=== PATIENT | male | born 1965 | race Caucasian/White ===

== ENCOUNTER 2023-06-26 11:07 | Day surgery (SDC) | payer OTHER, SELFPAY ==
[2023-06-26] VITALS (13 sets, daily range): BP systolic 108–154; BP diastolic 70–97
[2023-06-26] MEDS: VANCOCIN 300 MG IV (14:30)
[2023-06-26] MEDS: VANCOCIN 300 ML IV (14:30)
[2023-06-26 14:51] LABS: Glucose - Point of Care 103 mg/dl (70-99)
--- NOTE | 2023-06-26 18:18 | ITS.CL.PACE ---
Addendum entered and electronically signed by Himanshu Sharp DO 07/03/23 11:29:
Addendum:
Indications
Symptomatic Bradycardia off AVN blocking agents
CHB with syncope
Syncope with bradycardia
Original Note:
[employer] Front [employer]er - Pacemaker Implant
Pacemaker Implant
Procedure Report:
Primary Utility Accounts Director: Dr. Arturo Melissa
Procedure Date: 06/26/2023
Name of procedure:
1. Placement of a dual-chamber pacemaker, right sided
2. Subclavian venography
3. ILR explant
History:
1. 57-year-old male with past medical history significant for CORDELL, hypertension, hyperlipidemia, CAD status post PCI 2018, 2021, 05/27/2023, diabetes mellitus type 2, obesity, recurrent syncope, sleep apnea, symptomatic bradycardia with sinus arrest
8 to 9 seconds with concurrent syncope. Patient is left-handed and is an avid rifle shooter via the left shoulder confirmed at time of procedure today therefore choice was made by patient and physician for right-sided device implantation.
2. Please refer to H&P for complete history.
Indication:
Symptomatic bradycardia off AV parish blocking agents
Recurrent syncope with bradycardia
Methods:
After informed consent was obtained, the patient was brought to the EP laboratory in a postabsorptive, nonsedated state. Peripheral IV access was established. Prophylactic antibiotics were administered prior to incision. Continuous ECG, blood
pressure, and pulse oximetry were initiated. Cardioversion patch electrodes were placed on the patient's chest and back. A grounding patch was applied to the skin. Sedation was administered by anesthesia.
In order to define the extrathoracic portion of the subclavian vein and exclude significant venous obstruction or anomalous anatomy, subclavian venography was performed prior to the procedure. Using the patient's right peripheral IV, contrast was
injected and images were recorded. The right subclavian vein and SVC were found to be widely patent.
The right chest was prepared and draped in a sterile fashion. A time-out was performed. Local anesthesia was injected in the subcutaneous tissue in the infraclavicular area. An incision was made medial to the deltopectoral groove. The
subcutaneous tissue was dissected the level of the prepectoral fascia. A subcutaneous pocket was created. Under fluoroscopic guidance and with the assistance of the images from the venogram, 2 separate venipunctures were made using micropuncture
and modified Seldinger technique. These were performed in the extrathoracic portion of the subclavian vein. Guidewires were passed and two peel-away sheaths were placed, and used to advance leads into the circulation.
Using fluoroscopic guidance, the leads were positioned. The RV lead was advanced to the RV/outflow tract. Ventricular ectopy was recorded. Images were taken in CHOW and SAMOAN views to ensure appropriate lead placement. The lead tip was subsequently
positioned on the apical septum. Adequate sensing and pacing parameters were found, and no diaphragmatic stimulation was seen with high-output pacing.
Next, the right atrial lead was positioned in the right atrial appendage. Adequate sensing and pacing parameters were found, and no diaphragmatic stimulation was seen with high-output pacing. Both sheaths were split, and the leads were secured to
the fascia with Ethibond ties.
The pocket was flushed with antibiotic solution and hemostasis was assured. Surgiflo was applied. The generator was connected to the leads and placed inside the pocket with antibiotic envelope. The wound was closed with 3 running layers of
absorbable suture, and steri-strips were applied. Dressing applied over steri-strips in standard fashion.
Next, local anesthesia was injected in the subcutaneous tissue overlying the ILR. An incision was made into the chronic scar. The subcutaneous tissue was dissected the level of the chronic capsule. The capsule was opened and the ILR was removed.
The pocket was flushed with antibiotic solution and hemostasis was assured. Absorbable suture was used to close the wound. Manual pressure was applied until hemostasis resulted. Topical skin adhesive was applied to the skin.
Following the procedure, the patient was taken to the recovery area in stable condition. A chest x-ray was obtained in the holding area/patient room.
Lead parameters and device programming:
- RA Lead ([employer], [id number], #[id number]): Sensing 3.5 mV, Pacing threshold 0.4 V at 0.4 ms, Imp 520 Ohm
- RV Lead (Medtronic, [id number], #[id number]): Sensing 5.8 mV, Pacing threshold 0.4 V at 0.4 ms, Imp 520 Ohm
- Device: Medtronic, [id number] pacemaker (#[id number]), programmed AAIR to DDDR, mode switch on, lower rate 60, upper tracking rate 130 ppm
- Explanted device: [place] model: Biomonitor, Serial#[id number]
Conclusions:
1. Successful placement of a dual-chamber pacemaker
2. Subclavian venography
3. Successful removal of ILR
Recommendations:
1. Admit
2. Chest x-ray in recovery area/patient room.
3. IV antibiotics while the patient is admitted.
4. OK to resume home medications as indicated
5. Pressure dressing to be removed in AM, aquacell to remain until wound check
6. Follow-up will be arranged in the office in 7-10 days post-discharge
7. Given ischemic heart disease, OK to resume beta-adelaide
Himanshu Sharp, DO
Clinical Cardiac Manager Strategy
cc: Dr. Arturo Melissa
[2023-06-26 19:01] LABS: Glucose - Point of Care 95 mg/dl (70-99)
--- NOTE | 2023-06-26 19:25 | PTCARENOTE ---
Received patient at 1850 after removal of loop recorder and PPM left upper chest. Dressings dry and intact, immobilizer in place RUE. Monitoring VS, at the bedside, call good within reach.
[2023-06-26] MEDS: NORVASC 5 MG PO (20:21)
[2023-06-26] MEDS: LIPITOR 80 MG PO (20:21)
[2023-06-26] MEDS: ZESTRIL 20 MG PO (20:21)
[2023-06-26] MEDS: NEURONTIN 100 MG PO (20:21)
[2023-06-26] MEDS: PLAVIX 75 MG PO (20:21)
[2023-06-26] MEDS: ASPIR LOW (ENTERIC COATED) 81 MG PO (20:26)
[2023-06-26 21:31] LABS: Glucose - Point of Care 134 mg/dl (70-99)
[2023-06-26] MEDS: TYLENOL 650 MG PO (21:36)
--- NOTE | 2023-06-27 01:38 | PTCARENOTE ---
Pt. remains in NSR so far this shift. Right chest wall pressure dressing with Aquacel CDI with no drainage present, strong right radial pulse present with intact sensation, immobilizer on. CXR completed. Verified with Dr. Sharp pt. is not to
receive any further antibiotics since coming to the floor. Medicated with Tylenol for pacer site discomfort and sore throat from intubation with good results obtained. Pt. currently sleeping.
[2023-06-27 03:19] VITALS: BP 121/80
[2023-06-27] MEDS: TYLENOL 650 MG PO (03:45)
[2023-06-27 04:07] LABS: Hematocrit 42.3 % (39.0-52.0); Mean Corp Hgb Conc. 35.5 g/dL (33.0-37.0); Mean Corpuscular Hgb 30.5 pg (27.0-31.0); Mean Corpuscular Volume 86.2 fL (80.0-94.0); Platelet Count 176 10^3/uL (130-400); Red Blood Cell Count 4.91 10^6/uL (4.70-6.10); Red Cell Dist. Width 12.3 % (11.5-14.5); White Blood Cell Count 9.5 10^3/uL (4.8-10.8)
[2023-06-27 04:35] LABS: Blood Urea Nitrogen 13 mg/dl (9-20); Calcium 9.2 mg/dl (8.4-10.2); Carbon Dioxide 25 mmol/L (22-30); Chloride 102 mmol/L (98-107); Estimated Creatinine Clearance > 125 ml/min; Glucose 112 mg/dl (70-99); Sodium 137 mmol/L (135-145); eGFR > 60.00
[2023-06-27 06:38] VITALS: BP 143/92
[2023-06-27 06:43] LABS: Glucose - Point of Care 119 mg/dl (70-99)
--- NOTE | 2023-06-27 07:31 | W.PN.CARDCBS ---
Today's Communication / Plan
-
Stable for discharge
Impression / Plan
-
Impression:
Medtronic dual-chamber pacer 06/26/2023
Explant of LINQ monitor
Hypertension
Hyperlipidemia
CAD/RCA PCI 2019 and recent PCI
Diabetes
Obstructive sleep apnea
plan:
Okay for discharge
Progress Note - Parking Manager
Subjective
date of Service: June 27, 2023:
Patient feels well.
[facility] looks good
Allergies: Ibuprofen, omeprazole, penicillin
Outpatient meds reviewed, no changes upon discharge
PMH/PSH/FH/SH: Reviewed
Review of systems negative except as described above
Chest x-ray satisfactory post pacemaker
ECG sinus rhythm, poor R wave progression
Hemoglobin 15, white count 9.5, BUN and creatinine 13 and 0.7
Objective
Labs:
06/27/23 03:37
06/27/23 03:37
Labs
Hgb 15.0 g/dL (13.0-18.0) 06/27/23 03:37
Hct 42.3 % (39.0-52.0) 06/27/23 03:37
Plt Count 176 10^3/uL (130-400) 06/27/23 03:37
Sodium 137 mmol/L (135-145) 06/27/23 03:37
Potassium 4.0 mmol/L (3.5-5.1) 06/27/23 03:37
BUN 13 mg/dl (9-20) 06/27/23 03:37
Creatinine 0.7 mg/dL (0.7-1.3) 06/27/23 03:37
Glucose 112 mg/dl (70-99) H 06/27/23 03:37
Vital Signs and I&O:
Vital Signs
Temp Pulse Resp BP Pulse Ox
36.6 C 75 18 121/80 97
06/27/23 06:50 06/27/23 03:19 06/27/23 06:50 06/27/23 03:19 06/27/23 06:50
Vital Signs
Temp Pulse Resp BP Pulse Ox
36.6 C 75 18 121/80 97
06/27/23 06:50 06/27/23 03:19 06/27/23 06:50 06/27/23 03:19 06/27/23 06:50
Intake & Output
06/24/23 06/25/23 06/26/23 06/27/23
07:59 07:59 07:59 07:59
Intake Total 1859
Balance 1859
Physical Exam
Physical Exam
121/80, pulse 75, respirate 18, sats are 97%
No acute distress, head neck exam looks good, lungs are clear, regular rate and rhythm without murmur, incision intact, abdomen benign extremities without clubbing cyanosis or edema, neuro nonfocal
--- NOTE | 2023-06-27 07:56 | PTCARENOTE ---
[facility] linx performed and transmitted as ordered.
--- NOTE | 2023-06-27 08:11 | W.DS.TRANS ---
DC Summary - Wedger Machine
-
Discharge Instructions:
Discharge Diagnosis/Procedures Linq removal, and Pacemaker insertion
Diet Low Cholesterol,Diabetic, Carb Controlled
Driving Restrictions No driving for 1 week
Bathing Restrictions OK to Shower
Stop these medications: Hold Metformin post procedure resume on Thursday
am
Instructions:
Stand-Alone Forms: DC Inst - Implanted Device
Changes to Home Medications: No
Discharge Medications:
DC Medications w/original date entered in [employer]
adalimumab 40 mg/0.8 mL subcutaneous syringe kit (Humira) 40 mg SC Q2W 05/27/23
amlodipine 5 mg tablet 5 mg PO DAILY #90 tabs 05/27/23
aspirin 81 mg tablet,delayed release 81 mg PO DAILY 05/27/23
atorvastatin 80 mg tablet 80 mg PO DAILY 05/27/23
celecoxib 100 mg capsule (Celebrex) 100 mg PO BID 05/27/23
clopidogrel 75 mg tablet 75 mg PO DAILY #90 tabs 05/27/23
coenzyme Q10 200 mg capsule (Co Q-10) 200 mg PO DAILY 05/27/23
dapagliflozin propanediol 5 mg tablet (Farxiga) 5 mg PO DAILY 05/27/23
gabapentin 100 mg capsule 100 mg PO BID 05/27/23
isosorbide mononitrate 30 mg tablet,extended release 24 hr 30 mg PO DAILY 05/27/23
lisinopril 20 mg tablet 20 mg PO BID 05/27/23
metformin 1,000 mg tablet 1,000 mg PO BID 05/27/23
nitroglycerin 0.4 mg sublingual tablet (Nitrostat) 0.4 mg sublingual Q5M PRN chest pain 05/27/23
semaglutide 1 mg/dose (4 mg/3 mL) subcutaneous pen injector (Ozempic) 1 mg SC QWEEK 05/27/23
Home Medication Changes
Pending Results: No
[2023-06-27] MEDS: ZESTRIL 20 MG PO (08:40)
[2023-06-27] MEDS: NEURONTIN 100 MG PO (08:40)
[2023-06-27] MEDS: ASPIR LOW (ENTERIC COATED) 81 MG PO (08:40)
[2023-06-27] MEDS: IMDUR (EXTENDED RELEASE) 30 MG PO (08:40)
[2023-06-27] MEDS: PLAVIX 75 MG PO (08:40)
[2023-06-27] MEDS: FARXIGA 5 MG PO (08:40)
[2023-06-27] MEDS: NORVASC 5 MG PO (08:41)
[2023-06-27 08:44] LABS: Glycohemoglobin (HgbA1c) 6.2 % (4.0-5.6)
[2023-06-27] MEDS: FLUZONE QUAD 2023-2024 SYRINGE 0.5 ML IM (08:44)
--- NOTE | 2023-06-27 09:34 | PTCARENOTE ---
D/C instructions given to patient verbalizes understanding. INT D/C;d , telemetry D/C'd, personal belongings packed and sent home with patient. D/C to home via wc accompanied by vol. services.
== END 2023-06-27 09:42 | disposition home or self-care (01) ==
LOC: CATH 11:07
PROVIDERS: Nurse Practitioner Adult Health; ATTENDING PHYSICIAN Internal Medicine Cardiovascular Disease; FAMILY PHYSICIAN Internal Medicine; OTHER PHYSICIAN Internal Medicine Cardiovascular Disease
DX: I44.2 Atrioventricular block, complete (principal); R55 Syncope and collapse; R00.1 Bradycardia, unspecified; I10 Essential (primary) hypertension; E11.9 Type 2 diabetes mellitus without complications; G47.33 Obstructive sleep apnea (adult) (pediatric); E66.9 Obesity, unspecified; Z68.36 Body mass index [BMI] 36.0-36.9, adult; E78.5 Hyperlipidemia, unspecified; Z95.5 Presence of coronary angioplasty implant and graft; Z79.02 Long term (current) use of antithrombotics/antiplatelets; Z79.82 Long term (current) use of aspirin; Z79.84 Long term (current) use of oral hypoglycemic drugs; Z79.85 Long-term (current) use of injectable non-insulin antidiabetic drugs; I25.10 Atherosclerotic heart disease of native coronary artery without angina pectoris
CPT/HCPCS: 33208; 33286; 71045; 80048; 82962; 83036; 83735; 85027; 90686; 93005; C1785; C1892; C1898; G0008; Q9967